=== PATIENT | female | born 1955 | race Caucasian/White ===

== ENCOUNTER 2021-01-15 06:22 | Day surgery (SDC) | payer OTHER ==
[2021-01-15] MEDS ORDERED: Sodium Chloride 0.9% 1,000 ML IV SCH (07:00)
[2021-01-15 07:23] LABS: CORONAVIRUS COVID-19 NAA NEGATIVE (NEGATIVE)
[2021-01-15] MEDS ORDERED: Midazolam 1 MG/ML 2 ML SDV ONE (07:23)
[2021-01-15] MEDS ORDERED: Propofol 200 MG/20 ML SDV ONE (07:23)
[2021-01-15] MEDS ORDERED: fentaNYL 100 MCG/2 ML SDV ONE (07:23)
--- NOTE | 2021-01-15 09:12 | OR ---
DATE OF PROCEDURE: 01/15/2021 SURGEON: Mathieu Sanchez MD PROCEDURE: Colonoscopy. FINDINGS: Rectal polyp, approximately 5 mm, completely removed using cold biopsy forceps. COMPLICATIONS: None. DRUG SAFETY DATA MANAGEMENT SPECIALIST: None. ANESTHESIA: MAC. PREOPERATIVE DIAGNOSIS: Screening colonoscopy. POSTOPERATIVE DIAGNOSIS: Screening colonoscopy. RISKS: Risks, benefits, alternatives, and limitations including, but not limited to infection, bleeding, perforation, false positives and false negatives were explained to the patient and she wished to proceed. PROCEDURE IN DETAIL: The patient was placed in left lateral decubitus position. Digital rectal exam was performed without abnormality. Scope was introduced and advanced atraumatically to the ileocecal valve. A photo was taken of this. Scope was brought back to the ascending, transverse, descending colon, and retroflexed. No evidence of old or new blood. No masses. No polyps. No colitis. No abnormalities on retroflexion. The aforementioned polyp was identified and completely removed. The patient tolerated the procedure well. Mathieu Sanchez MD /[id number]
== END 2021-01-15 09:00 | disposition home or self-care (01) ==
LOC: JP.SDS 06:22
PROVIDERS: ATTEND Surgery
DX: Z12.11 Encounter for screening for malignant neoplasm of colon (principal); K62.1 Rectal polyp; Z01.812 Encounter for preprocedural laboratory examination; Z20.822 Contact with and (suspected) exposure to COVID-19
CPT/HCPCS: 0241U; 45380; 88305; J2250; J2704; J3010; J7030